=== PATIENT | male | born 1960 | race Caucasian/White ===

== ENCOUNTER → 2022-05-30 16:11 | Outpatient (BNVA) | payer OTHER, SELFPAY | PROVIDERS: PCP Family Medicine; Visit Provider Family Medicine | DX: I10 Essential (primary) hypertension (principal); E11.9 Type 2 diabetes mellitus without complications; E78.00 Pure hypercholesterolemia, unspecified; K21.9 Gastro-esophageal reflux disease without esophagitis; M54.9 Dorsalgia, unspecified; G89.29 Other chronic pain; Z79.4 Long term (current) use of insulin; M72.2 Plantar fascial fibromatosis; Z68.39 Body mass index [BMI] 39.0-39.9, adult | CPT/HCPCS: 80053; 80061; 83036; 85025 ==

== ENCOUNTER → 2022-12-28 10:08 | Outpatient (BNVA) | payer OTHER, SELFPAY | PROVIDERS: PCP Family Medicine; Visit Provider Internal Medicine | DX: E11.9 Type 2 diabetes mellitus without complications (principal) | CPT/HCPCS: 80053; 80061; 82043; 83036 ==

== ENCOUNTER → 2023-03-22 11:03 | Outpatient (BNVA) | payer OTHER, SELFPAY | PROVIDERS: PCP Family Medicine; Visit Provider Internal Medicine | DX: E11.9 Type 2 diabetes mellitus without complications (principal); R53.83 Other fatigue | CPT/HCPCS: 80053; 80061; 82043; 83036; 84403 ==

== ENCOUNTER → 2023-12-03 10:52 | Outpatient (BNVA) | payer OTHER, SELFPAY | PROVIDERS: PCP Internal Medicine; Visit Provider Internal Medicine | DX: E11.649 Type 2 diabetes mellitus with hypoglycemia without coma (principal) | CPT/HCPCS: 80053; 80061; 82043; 83036 ==

== ENCOUNTER 2024-02-23 15:35 | Outpatient (CLI) | payer OTHER, SELFPAY ==
--- NOTE | 2024-02-23 16:00 | US_ITS ---
WS: [id number] ULTRASOUND SOFT TISSUES LEFT neck HISTORY: posterior neck mass on L side COMPARISON: None available. TECHNIQUE: 2-D and color Doppler imaging is submitted. Images submitted demonstrate nearly isoechoic mass to the adjacent soft tissues at the palpable regio n which is described as LEFT neck. The mass is predominantly along the midline of the posterior neck. Mass measures approximately 2.8 x 1.7 cm. The margins are ill-defined. No increased vascularity. US/US soft tissue head neck [id number] IMPRESSION: Ill-defined, nearly isoechoic neck mass, centered along the posterior neck. Thi s is most likely a lipoma. This can be further evaluated by CT with IV contrast if clinically thought necessary.
== END 2024-02-23 15:36 | disposition home or self-care (01) ==
LOC: RAD 15:36
PROVIDERS: PCP Internal Medicine; Visit Provider Family Medicine
DX: R22.1 Localized swelling, mass and lump, neck (principal)
CPT/HCPCS: 76536

== ENCOUNTER → 2024-06-02 11:37 | Outpatient (BNVA) | payer BC, SELFPAY | PROVIDERS: PCP Internal Medicine; Visit Provider Internal Medicine | DX: E78.00 Pure hypercholesterolemia, unspecified (principal); E11.9 Type 2 diabetes mellitus without complications; Z79.4 Long term (current) use of insulin; E11.649 Type 2 diabetes mellitus with hypoglycemia without coma | CPT/HCPCS: 80053; 80061; 82043; 83036 ==

== ENCOUNTER → 2024-12-25 10:51 | Outpatient (BNVA) | payer BC, SELFPAY | PROVIDERS: PCP Internal Medicine | DX: E11.649 Type 2 diabetes mellitus with hypoglycemia without coma (principal); Z79.4 Long term (current) use of insulin; E78.00 Pure hypercholesterolemia, unspecified | CPT/HCPCS: 80053; 80061; 82043; 83036 ==

== ENCOUNTER → 2025-01-17 15:34 | Outpatient (BNVA) | payer BC, SELFPAY | PROVIDERS: PCP Family Medicine; Visit Provider Family Medicine | DX: E78.00 Pure hypercholesterolemia, unspecified (principal); Z12.5 Encounter for screening for malignant neoplasm of prostate | CPT/HCPCS: 84153; 85025 ==

== ENCOUNTER 2025-01-25 12:50 | Outpatient (CLI) | payer BC, SELFPAY ==
[2025-01-25] MEDS: iohexol 350 mg/mL 500 mL Btl (per mL) IV (13:48)
--- NOTE | 2025-01-25 14:00 | CT_ITS ---
WS: [id number] CT NECK WITH CONTRAST HISTORY: painful mass TECHNIQUE: Contiguous 2 mm axial images are performed through the neck with intravenous contrast. Sagittal and coronal reformats are also submitted. All CT scans at [facility] use at least one of these dose optimization techniques: automated exposure control; mA and/or kV adjustment per patient size (includes targeted exams where dose is matched to clinical indication); or iterative reconstruction. CONTRAST: CONTRAST: Omnipaque 350; 100 mL IV. DLP: 282.39 mGy.cm COMPARISON: Ultrasound 02/23/2024 Painful mass along the posterior neck corresponds to a lipomatous mass extending over a length of 5.7 cm. Mass transversely measures 2.9 cm. There is a very minimal amount of fat stranding. No obvious enhancing mass or nodule. This mass has been present for several months. Most consistent with a lipoma. Nasopharynx, oropharynx, hypopharynx and larynx are unremarkable. No soft tissue masses or abnormal enhancement. Torus tubarius and fossa of Rosenmuller and parapharyngeal fat are normal. No significant lymphadenopathy is identified. Thyroid gland and salivary glands are normally enhancing with no masses. Cervical spondylosis. No destructive bone lesions. Visualized portions of the skull base demonstrate no abnormalities. Orbits and globes are within normal limits. No soft tissue masses. Visualized paranasal sinuses and mastoid air cells are normal. Lung apices are clear. CT/CT neck w con* [id number] IMPRESSION: 1. Large lipoma centered along the posterior cervical spine with the epicenter near C3. Mass extends over a length of 5.7 cm and transversely by 2.9 cm. No s ignificant increased vascularity. 2. No cervical chain lymphadenopathy. No neck mass.
== END 2025-01-25 12:51 | disposition home or self-care (01) ==
PROVIDERS: PCP Family Medicine; Visit Provider Family Medicine
DX: D17.0 Benign lipomatous neoplasm of skin and subcutaneous tissue of head, face and neck (principal); R22.1 Localized swelling, mass and lump, neck
CPT/HCPCS: 70491

== ENCOUNTER → 2025-02-15 15:28 | Outpatient (BNVA) | payer BC, SELFPAY | PROVIDERS: PCP Family Medicine; Visit Provider Orthopaedic Surgery | DX: Z01.818 Encounter for other preprocedural examination (principal); D17.0 Benign lipomatous neoplasm of skin and subcutaneous tissue of head, face and neck | CPT/HCPCS: 36415; 80053; 81001; 83036; 85025 ==

== ENCOUNTER 2025-03-09 12:39 | Day surgery (SDC) | payer BC, SELFPAY ==
[2025-03-09] VITALS (12 sets, daily range): BP systolic 128–173; BP diastolic 67–93; PULSE 82–92; RESP 16–18; TEMP 36.1–36.3; O2SAT 94–100; BMI 41.8
--- NOTE | 2025-03-09 13:39 | ANES.PREANE2 ---
Pre-Anesthetic Assessment Height/Weight: Height 5 ft 11 in Weight 300 lb Temp Pulse Resp BP Pulse Ox O2 Del Method 97.4 F L 86 18 173/86 95 Room Air 03/09/25 13:13 03/09/25 13:13 03/09/25 13:13 03/09/25 13:13 03/09/25 13:13 03/09/25 13:13 Preop Diagnosis: Lipoma posterior cervical spine Operation Date: 03/09/25 14:25 Proposed Procedures p Excision Tissue Neck Neck Epidermoid Cyst Excision(Not Applicable) - Vinny Ness, DO Was Beta Kira taken within 24 hours: N/A Was Clonidine taken within 24 hours: N/A Last intake: Intake Last Liquid Date 03/09/25 Last Liquid Time 07:30 Last Solid Date 03/08/25 Last Solid Time 23:00 Social No alcohol and No tobacco Exam alert, oriented x 3, clear to auscultation bilaterally and regular rate & rhythm Airway Submandibular: within normal limits Cervical ROM: within normal limits Mallampati: Class III Dentition: full Anesthetic Plan ASA status: 3 Anesthesia: General Other: No prior issues with anesthesia NPO since yesterday evening History of hypertension on losartan IDDM, preop BS 101 GERD on omeprazole BMI 42 Labs reviewed from 02/15/2025 and acceptable for procedure today Plan for GETA Medications/Allergies Home Medications ?Medication ?Instructions ?Recorded ?Confirmed ?Last Taken ?Type aspirin 325 mg tablet 325 mg PO PRN 05/30/22 03/08/25 01/07/25 History fluticasone propionate 50 1 spray intranasal DAILY PRN 05/30/22 03/08/25 Unknown History mcg/actuation nasal allergies spray,suspension (Allergy Relief (fluticasone)) blood-glucose meter (OneTouch #1 ea 10/11/22 03/07/25 Unknown Rx Ultra2 Meter kit) lancets (OneTouch UltraSoft #200 ea 10/11/22 03/07/25 Unknown Rx Lancets) blood-glucose,desk sergeant,cont #1 ea 02/27/23 03/07/25 Unknown Rx (Dexcom G7 Ethanol Operator) albuterol sulfate 90 mcg/actuation 2 puff inhalation Q6H PRN 09/16/23 03/08/25 Unknown Rx aerosol inhaler allergies #8.5 grams insulin syringe,safety needle 1 mL #100 ea 09/16/23 03/07/25 Unknown Rx 31 gauge x 15/64 (BD SafetyGlide Insulin Syringe) blood-glucose sensor (Dexcom G7 #9 ea 08/12/24 03/07/25 Unknown Rx Sensor device) metformin 1,000 mg tablet 1,000 mg PO BID #180 tabs 12/22/24 03/08/25 03/08/25 Rx empagliflozin 25 mg tablet 25 mg PO DAILY #90 tabs 12/30/24 03/08/25 03/08/25 Rx (Jardiance) insulin NPH isoph U-100 human 100 50 unit (0.5 mL) SUBCUT BID #90 mL 12/31/24 03/08/25 03/08/25 Rx unit/mL (3 mL) subcutaneous pen losartan 100 mg tablet 100 mg PO DAILY #90 tabs 01/17/25 03/08/25 03/08/25 Rx simvastatin 40 mg tablet 40 mg PO .hs #90 tabs 01/17/25 03/08/25 03/08/25 Rx glipizide 10 mg tablet 5 mg PO TID PRN high blood sugar 03/08/25 03/08/25 Unknown History methocarbamol 500 mg tablet 500 mg PO TID PRN Back Pain 03/08/25 03/08/25 Unknown History omeprazole 20 mg capsule,delayed 20 mg PO DAILY PRN Heartburn 03/08/25 03/08/25 Unknown History release Allergies Allergy/AdvReac Type Severity Reaction Status Date / Time No Known Allergies Allergy Verified 03/07/25 12:08 [facility] Anesthesia Medical History BMI 40.0-44.9, adult GERD (gastroesophageal reflux disease) Plantar fascia syndrome Chronic back pain Essential hypertension Hypercholesteremia Insulin dependent diabetes mellitus Family History Father Cancer prostate Mother Cancer lung Other Diabetes Lung disease Psychiatric illness Denies family history of CAD (coronary artery disease) Clotting disorder Dementia Hyperlipidemia Chronic kidney disease (CKD) Anesthesia complication Bleeding disorder Hypertension Stroke Social History Smoking and tobacco/nicotine status: never used tobacco/nicotine Alcohol intake: current Alcohol intake frequency: few times a month Alcohol type: beer Substance/Drug Use: never Lives independently: Yes Marital status: service: Yes status: Retired branch: [employer] Current occupational status: employed Current occupation: systems integration engineer Current gender identity: Male Special kallie needs: No Agree to transfusion: Yes
--- NOTE | 2025-03-09 14:16 | W.PM.OPSUD ---
Surgery/Procedure H&P Update DATE OF PROCEDURE: March 09, 2025 DATE H&P PERFORMED: 02/15/25 H&P UPDATE INFORMATION: I have reviewed H&P completed within last 30 days, I have examined patient prior to procedure and No changes to prior documentation PREOP DIAGNOSIS: Lipoma posterior cervical spine PLANNED PROCEDURE: Operation Date: 03/09/25 14:25 Proposed Procedures p Excision Tissue Neck Neck Epidermoid Cyst Excision(Not Applicable) - Vinny Ness DO
[2025-03-09] MEDS: ceFAZolin 3,000 MG in sodium chloride 0.9% (plus) 100 ML 200 MG IV (14:30)
[2025-03-09] MEDS: lidocaine-epi 1% 20 mL INJ 10 ML INJECTION (15:18)
--- NOTE | 2025-03-09 15:26 | PM.OP ---
Operative Report Date of procedure: March 09, 2025 Pre-op diagnosis: Posterior cervical lipoma Post-op diagnosis: same Procedure done: Removal of lipoma from posterior cervical spine 3 x 3 cm Surgeon: Vinny Ness DO Estimated blood loss (mL): 25 Procedure: Removal of lipoma from posterior cervical spine 3 x 3 cm Patient is brought to the operative suite after undergoing anesthesia patient was placed in the prone position. All areas impingement well-padded. Patient was prepped and draped normal sterile fashion. Since was made of the posterior cervical spine. The lipoma was identified. Using a Bovie the outer capsule of it was identified and followed around both medial and laterally. Size lipoma was approximate 3 x 3 cm. It was taken down to the fascia of the posterior cervical spine and up as high as the occiput . Once the lipoma was removed it was sent for pathology. Wounds were irrigated and closed in a layered fashion with 0 Vicryl 2-0 Vicryl Monocryl suture. Sterile dressings were applied and patient transferred to the PACU in stable addition.
--- NOTE | 2025-03-09 17:14 | PC.NURSE ---
Postoperative bandage upon discharge was clean, dry, and intact. Updated patient to leave dressing on for 1 week and follow up with post op appointment in [address] Ness's instructions.
== END 2025-03-09 17:10 | disposition home or self-care (01) ==
PROVIDERS: PCP Family Medicine; Visit Provider Orthopaedic Surgery
PROC: (CPT 21932; principal; 2025-03-09 14:15)
DX: D17.79 Benign lipomatous neoplasm of other sites (principal); I10 Essential (primary) hypertension; E11.9 Type 2 diabetes mellitus without complications; K21.9 Gastro-esophageal reflux disease without esophagitis; Z79.82 Long term (current) use of aspirin; Z79.4 Long term (current) use of insulin; Z79.84 Long term (current) use of oral hypoglycemic drugs; Z80.42 Family history of malignant neoplasm of prostate; Z80.1 Family history of malignant neoplasm of trachea, bronchus and lung
CPT/HCPCS: 21932; 36416; 82962; 88307; J0690; J1100; J2250; J2405; J2704; J3010; J3490; J7030; J9999